=== PATIENT | male | born 1940 | race Caucasian/White ===

== ENCOUNTER 2017-05-05 23:49 | Emergency (ER) | payer OTHER, BC ==
[2017-05-06 00:04] VITALS: BP 142/5; PULSE 76; TEMP 98.1; BMI 28.1
--- NOTE | 2017-05-06 00:13 | PDOC ---
History of Present Illness - General Chief Complaint: Chest Pain Stated Complaint: CHEST PAIN Time Seen by Provider: 05/06/17 00:12 - History of Present Illness Initial Comments: This 76-year-old man with a history of coronary artery disease (NM, 2), DM, cirrhosis presents with history of left upper quadrant abdominal/left flank pain earlier this evening. Patient states that he began having mild pain in this area as he entered a restaurant approximately 2 hours prior to presentation. Pain continued (described as dull and steady) for approximately an hour while he was in the restaurant. As soon as he entered the parking lot of the restaurant, pain resolved spontaneously and has not recurred. Pain was worse with sitting and better with standing up. No pleuritic aspect of the pain. He denies shortness of breath, chest pain, diaphoresis, nausea. He has had no recent constipation or diarrhea. No history of fever/chills. He has had no hematuria/urinary frequency or urgency/dysuria. Patient has a history of renal colic and states this pain was very different. Of note, the patient states he has had a history of splenomegaly (related to his cirrhosis) but no history of left upper quadrant pain. Past History - Past Medical History Allergies/Adverse Reactions: Allergies Allergy/AdvReac Type Severity Reaction Status Date / Time No Known Drug Allergies Allergy Verified 09/24/13 00:27 Home Medications: Ambulatory Orders Aspirin Coated [Ecotrin -] 81 mg PO DAILY 09/16/13 Lisinopril [Prinivil -] 5 mg PO BID 09/16/13 Nadolol 20 mg PO BID 09/16/13 Omeprazole 20 mg PO BID 09/16/13 Atorvastatin Ca [Lipitor] 10 mg PO HS 05/05/17 Sitagliptin Phosphate [Januvia] 100 mg PO DAILY 05/05/17 Anemia: Yes Asthma: No Cancer: No Cardiac Disorders: Yes CVA: No COPD: No CHF: No Dementia: No Diabetes: Yes GI Disorders: No Disorders: No HTN: Yes Hypercholesterolemia: Yes Liver Disease: Yes (non alcolhol related liver cirrhosis) Seizures: No Thyroid Disease: No - Surgical History Cardiac Surgery: Yes (CARDIAC CATH AFTER NM, STENTS) - Suicide/Smoking/Psychosocial Hx Smoking Status: No Smoking History: Former smoker Have you smoked in the past 12 months: No Number of Cigarettes Smoked Daily: 0 If you are a former smoker, when did you quit?: 1971 Information on smoking cessation initiated: No Hx Alcohol Use: No Drug/Substance Use Hx: No Substance Use Type: None Hx Substance Use Treatment: No Cardiac Specific PMH - Complaint Specific PMHX Myocardial Infarction: Yes Pacemaker: No Review of Systems - Review of Systems Able to Perform ROS?: Yes Comments:: 12 point review of systems is negative except for what is noted in the history of present illness *Physical Exam - Vital Signs Last Vital Signs Temp Pulse Resp BP Pulse Ox 98.1 F 76 16 142/5 94 L 05/06/17 00:01 05/06/17 00:01 05/06/17 00:01 05/06/17 00:01 05/06/17 00:01 - Physical Exam Comments: GENERAL: Adult male, alert and oriented 3, in no acute distress HEAD: Normal with no signs of trauma. EYES: PERRLA, EOMI, sclera anicteric, conjunctiva clear. ENT: Ears normal, nares patent, oropharynx clear without exudates. Moist mucous membranes. NECK: Normal range of motion, supple without lymphadenopathy, JVD, or masses. LUNGS: Breath sounds equal, clear to auscultation bilaterally. No wheezes, and no crackles. HEART:Regular rate and rhythm, normal S1 and S2 without murmur, rub or gallop. ABDOMEN:.normal bowel sounds . Moderately distended but soft . No guarding, tenderness or rebound.No masses No distention. EXTREMITIES: Normal range of motion, no edema. No clubbing or cyanosis. No erythema, or tenderness. NEUROLOGICAL: Cranial nerves II through XII grossly intact. Normal speech. No focal neurological deficits. MUSCULOSKELETAL: Back non-tender to palpation, no CVA tenderness SKIN: Warm, Dry, normal turgor, no rashes or lesions noted. 12-lead electrocardiogram is performed and interpreted by me. This shows normal sinus rhythm at 60 beats per minutes and: Intervals, wave forms and axis or normal. No acute ST or T-wave abnormalities. It is essentially unchanged from most recent EKG tracing available dated 09/11/13 ED Treatment Course - LABORATORY CBC & Chemistry Diagram: 05/06/17 00:35 05/06/17 00:35 - ADDITIONAL ORDERS Additional order review: Laboratory Results 05/06/17 05/06/17 00:35 00:35 Sodium 140 Potassium 4.0 Chloride 104 Carbon Dioxide 29 Anion Gap 7 L BUN 12 Creatinine 0.7 Creat Clearance w eGFR > 60 Random Glucose 149 H Calcium 8.0 L Total Bilirubin 1.9 H D AST 40 H D ALT 29 Alkaline Phosphatase 108 Creatine Kinase 43 Troponin I < 0.02 Total Protein 6.4 Albumin 2.9 L Lipase 103 05/06/17 00:35 RBC 3.55 L MCV 101.8 H D MCHC 35.3 RDW 14.0 D MPV 9.3 D Neutrophils % 65.3 Lymphocytes % 15.4 D Monocytes % 15.3 H Eosinophils % 3.4 Basophils % 0.6 Medical Decision Making - Medical Decision Making Patient continued to be comfortable without recurrence of left-sided upper abdominal/flank pain or development of new symptoms. Laboratory evaluation showed normal cardiac enzymes with troponin of 0 0.02. CBC notable for a platelet count of 51,000. Patient has had long history of thrombocytopenia with platelet count as low as 47,000 measured here 09/20/13. Patient states that he has had a hematologic workup in the past including a bone marrow aspiration. Also notable but present previously is calcium level VIII.0. This was as low 7.7 measured 09/24/13. Total bilirubin is mildly elevated (1.9) Results of the studies discussed with the patient. He is already scheduled to follow up with his research environmental engineer next week. 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 Meanwhile, the patient has any recurrence of his pain or develops any kind of chest pain/shortness of breath/diaphoresis he should return to the emergency room immediately. *DC/Admit/Observation/Transfer Diagnosis at time of Disposition: Flank pain, Upper abdominal pain - Discharge Dispostion Disposition: HOME Condition at time of disposition: Stable - Referrals Referrals: Zaki Stokes [Primary Care Provider] - - Patient Instructions Printed Discharge Instructions: DI for Flank Pain Additional Instructions: Continue medications as prescribed Return to ER if you have worsening pain or experience vomiting/fever/shortness of breath Follow-up with your research environmental engineer next week as scheduled Consider following up with general medical doctor in 5 days
[2017-05-06 01:15] LABS: BASOPHIL 0.6 % (0-2.0); EOSINOPHIL 3.4 % (0-4.5); MCHC 35.3 g/dl (32.0-35.9); MEAN CELL VOLUME 101.8 fl (80-96); MEAN PLT VOLUME 9.3 fl (7.5-11.1); NEUTROPHILS 65.3 % (42.8-82.8); PLATELET COUNT 51 K/MM3 (134-434); WHITE BLOOD COUNT 4.8 K/mm3 (4.0-10.0)
[2017-05-06 01:36] LABS: CPK 43 IU/L (39-308); TROPONIN I < 0.02 ng/ml (0.00-0.05)
[2017-05-06 01:40] LABS: ALBUMIN 2.9 g/dl (3.4-5.0); ANION GAP 7 (8-16); CO2 29 mmol/L (21-32); GLUCOSE,RANDOM 149 mg/dL (74-106); SGOT/AST 40 U/L (15-37); SGPT/ALT 29 U/L (12-78)
[2017-05-06 01:43] LABS: ALK PHOS 108 U/L (45-117); BILIRUBIN,TOTAL 1.9 mg/dL (0.2-1.0); CREATININE 0.7 mg/dL (0.7-1.3); TOT PROT 6.4 g/dl (6.4-8.2)
--- NOTE | 2017-05-12 09:21 | EKG ---
Test Reason : Blood Pressure : / mmHG Vent. Rate : 069 BPM Atrial Rate : 069 BPM P-R Int : 162 ms QRS Dur : 084 ms QT Int : 420 ms P-R-T Axes : 000 -49 052 degrees QTc Int : 450 ms NORMAL SINUS RHYTHM LEFT ANTERIOR FASCICULAR BLOCK MODERATE VOLTAGE CRITERIA FOR LVH, MAY BE NORMAL VARIANT CANNOT RULE OUT SEPTAL INFARCT , AGE UNDETERMINED ABNORMAL ECG WHEN COMPARED WITH ECG OF 17-SEP-2013 17:27, NO SIGNIFICANT CHANGE WAS FOUND Confirmed by ARPIL CARBONE MD ([id number]) on 05/12/2017 9:21:02 AM Referred By: DR JOHNSON Confirmed By:ARPIL CARBONE MD
== END 2017-05-06 02:16 | disposition home or self-care (01) ==
LOC: FER 23:49
DX: R10.10 Upper abdominal pain, unspecified (principal); R10.32 Left lower quadrant pain; I25.2 Old myocardial infarction; E11.9 Type 2 diabetes mellitus without complications; I25.10 Atherosclerotic heart disease of native coronary artery without angina pectoris; I10 Essential (primary) hypertension; E78.00 Pure hypercholesterolemia, unspecified; I51.9 Heart disease, unspecified
CPT/HCPCS: 36415; 80053; 83690; 84484; 85025; 93005; 99282-25

== ENCOUNTER 2017-06-30 10:46 | Emergency (ER) | payer OTHER, BC ==
--- NOTE | 2017-06-30 10:52 | PDOC ---
History of Present Illness - General Chief Complaint: Shortness of Breath Stated Complaint: SOB,COUGH Time Seen by Provider: 06/30/17 10:52 Past History - Past Medical History Allergies/Adverse Reactions: Allergies Allergy/AdvReac Type Severity Reaction Status Date / Time No Known Drug Allergies Allergy Verified 06/30/17 10:47 Home Medications: Ambulatory Orders Aspirin Coated [Ecotrin -] 81 mg PO DAILY 09/16/13 Lisinopril [Prinivil -] 5 mg PO BID 09/16/13 Nadolol 20 mg PO BID 09/16/13 Omeprazole 20 mg PO BID 09/16/13 Atorvastatin Ca [Lipitor] 10 mg PO HS 05/05/17 Sitagliptin Phosphate [Januvia] 100 mg PO DAILY 05/05/17 Azithromycin [Zithromax -] 250 mg PO UTDICT #6 tab 06/30/17 Methylprednisolone [Medrol Dose Yong] 4 mg PO ASDIR #21 tablet 06/30/17 Promethazine/Phenyleph/Codeine [Phenergan VC+Codeine Syrup] 5 ml PO TID #150 ml MDD 15ml 06/30/17 Anemia: Yes Asthma: No Cancer: No Cardiac Disorders: Yes CVA: No COPD: No CHF: No Dementia: No Diabetes: Yes GI Disorders: No Disorders: No HTN: Yes Hypercholesterolemia: Yes Liver Disease: Yes (non alcolhol related liver cirrhosis) Seizures: No Thyroid Disease: No - Surgical History Cardiac Surgery: Yes (CARDIAC CATH AFTER ND, STENTS) - Suicide/Smoking/Psychosocial Hx Smoking Status: No Smoking History: Former smoker Have you smoked in the past 12 months: No Number of Cigarettes Smoked Daily: 0 If you are a former smoker, when did you quit?: 1972 Hx Alcohol Use: No Drug/Substance Use Hx: No Substance Use Type: None Hx Substance Use Treatment: No ED Treatment Course - LABORATORY CBC & Chemistry Diagram: 06/30/17 11:26 06/30/17 11:26 *DC/Admit/Observation/Transfer Diagnosis at time of Disposition: Bronchitis - Discharge Dispostion Disposition: HOME Condition at time of disposition: Unchanged/Unknown Admit: No - Prescriptions Prescriptions: Azithromycin [Zithromax -] 250 mg PO UTDICT #6 tab Methylprednisolone [Medrol Dose Yong] 4 mg PO ASDIR #21 tablet Promethazine/Phenyleph/Codeine [Phenergan VC+Codeine Syrup] 5 ml PO TID #150 ml MDD 15ml - Referrals Referrals: Daniel Portillo MD [Staff Physician] - Segun Sharma MD [Staff Physician] - - Patient Instructions Printed Discharge Instructions: DI for Acute Bronchitis Additional Instructions: Mr Roman- Sorry you are not feeling so well. I am treating you for Bronchitis. Antibiotics and Medrol Dose Pack. Return to us if worse or new symptoms. Follow up with your doctor or Bonifacio Sharma/[facility]. [place]- Dr. Blaise Gomez - Post Discharge Activity
[2017-06-30 10:59] VITALS: BP 125/66; TEMP 98.2; BMI 29.0
[2017-06-30 11:00] VITALS: PULSE 70
[2017-06-30] MEDS ORDERED: methylPREDNISolone NA SUCC 125 MG/2 ML VIAL IVPUSH ONE (11:12)
[2017-06-30] MEDS ORDERED: ALBUTEROL SO4 2.5/IPRATROPIUM 0.5 INH SOL 3 ML VIAL.NEB. NEB ONE ×2 (11:12→11:44)
[2017-06-30] MEDS ORDERED: ALBUTEROL SO4 0.083% IH SOL 2.5 MG/3 ML VIAL.NEB. NEB ONE ×2 (11:12→11:44)
[2017-06-30 11:36] LABS: BASOPHIL 0.8 % (0-2.0); EOSINOPHIL 0.9 % (0-4.5); MCH 34.6 pg (25.7-33.7); MCHC 34.3 g/dl (32.0-35.9); MEAN CELL VOLUME 100.7 fl (80-96); NEUTROPHILS 72.1 % (42.8-82.8); PLATELET COUNT 79 K/MM3 (134-434); WHITE BLOOD COUNT 7.3 K/mm3 (4.0-10.8)
[2017-06-30] MEDS ORDERED: methylPREDNISolone NA SUCC 125 MG/2 ML VIAL ONE (11:44)
[2017-06-30 11:52] LABS: ALBUMIN 3.2 g/dl (3.5-5.0); ALK PHOS 50 U/L (32-92); ANION GAP 8 (8-16); BILIRUBIN,DIRECT 0.9 mg/dL (0.0-0.3); BILIRUBIN,TOTAL 3.8 mg/dl (0.2-1.0); CALCIUM 8.1 mg/dl (8.4-10.2); CO2 26 mmol/L (22-28); CPK 72 IU/L (39-308); CREATININE 0.7 mg/dl (0.6-1.3); GLUCOSE,RANDOM 186 mg/dl (74-106); SGOT/AST 40 U/L (10-42); SGPT/ALT 22 U/L (10-40); TOT PROT 6.7 g/dl (6.4-8.3)
[2017-06-30] MEDS ORDERED: cefTRIAXone 1 GM/50 ML BAG (PRE-DOCKED) IVPB ONE (12:29)
[2017-06-30] MEDS ORDERED: AZITHROMYCIN 250 MG TABLET PO ONE (12:29)
[2017-06-30] MEDS ORDERED: cefTRIAXone SODIUM 1 GM VIAL ONE (12:31)
[2017-06-30] MEDS ORDERED: AZITHROMYCIN 500 MG TABLET ONE (12:31)
[2017-06-30 15:39] LABS: TROPONIN I (DFP) < 0.03 ng/ml (0.03-0.50)
--- NOTE | 2017-07-01 19:35 | EKG ---
Test Reason : Blood Pressure : / mmHG Vent. Rate : 070 BPM Atrial Rate : 070 BPM P-R Int : 168 ms QRS Dur : 086 ms QT Int : 430 ms P-R-T Axes : -19 -51 -42 degrees QTc Int : 464 ms NORMAL SINUS RHYTHM LEFT AXIS DEVIATION SEPTAL INFARCT (CITED ON OR BEFORE 06-MAY-2017) NONSPECIFIC ST AND T WAVE ABNORMALITY ABNORMAL ECG WHEN COMPARED WITH ECG OF 06-MAY-2017 00:11, NONSPECIFIC T WAVE ABNORMALITY NOW EVIDENT IN INFERIOR LEADS Confirmed by PIETER YU MD ([id number]) on 07/01/2017 7:34:45 PM Referred By: JORGE ALBERTO Confirmed By:PIETER YU MD
== END 2017-06-30 12:53 | disposition home or self-care (01) ==
LOC: FER 10:46
PROC: 3E0F7GC Introduction of Other Therapeutic Substance into Respiratory Tract, Via Natural or Artificial Opening (ICD-10-PCS; principal; 2017-06-30)
PROC: 3E03329 Introduction of Other Anti-infective into Peripheral Vein, Percutaneous Approach (ICD-10-PCS; 2017-06-30)
PROC: 3E033GC Introduction of Other Therapeutic Substance into Peripheral Vein, Percutaneous Approach (ICD-10-PCS; 2017-06-30)
DX: J40 Bronchitis, not specified as acute or chronic (principal)
CPT/HCPCS: 36415; 71020-TC; 80053; 80076; 82550; 83880; 84484; 85025; 87040; 87804; 93005; 94640; 96374; 96375; 99283-25

== ENCOUNTER 2018-03-26 16:57 | Emergency (ER) | payer OTHER, BC ==
--- NOTE | 2018-03-26 17:02 | PDOC ---
Attending Attestation - Resident Resident Name: SolangeRobina - ED Attending Attestation I have performed the following: I have examined & evaluated the patient, The case was reviewed & discussed with the resident, I agree w/resident's findings & plan, Exceptions are as noted <GabriellaJuanito kwan - Last Filed: 03/26/18 17:01> - HPI HPI: 03/26/18 18:30 The patient is a 77 year old male with a past medical history of hypertension, diabetes, liver cancer, and prior CVA who presents to the emergency department for evaluation right arm swelling and bruising. The patient reports hitting his right elbow on an elevator door 1 week ago. He reports subsequent bruising and swelling of the right forearm and upper arm, but denies any associated pain. Patient reports the gradual improvement of the bruising, but decided to visit an urgent care due to what he describes as a mobile knot on the anterior side of the forearm just proximal to the elbow. He states he visited an Urgent Care this morning in which a physician assistant corporate controller advised him to visit the emergency department for further evaluation secondary to potential breakage or fracture of his right arm. Of note, the patient is currently on baby aspirin. Denies chest pain, shortness of breath, headache, dizziness, fever, chills, nausea, vomiting, or any bowel/urinary symptoms. - Physicial Exam PE: GENERAL: Well-appearing, well-nourished. No apparent distress. HEENT: Normocephalic, atraumatic. PERRL, EOM intact. CARDIOVASCULAR: Normal S1, S2. Regular rate and rhythm. PULMONARY: Clear to auscultation bilaterally. ABDOMEN: Soft, non-distended, non-tender. EXTREMITIES: (+)discoloration of volar aspect of right forearm and upper arm, suggestive of old bruising. No induration, tenderness, or warmth which would suggest an infection. There is a 1 cm nodule overlying the medial condyle of the elbow, which is nontender, and has the consistency of a hematoma. Full ROM of elbow in flexion, extension, supination, and pronation both actively and passively without any pain. Pulses are full and no distal sensory deficits. SKIN: Warm, dry. No rash NEUROLOGICAL: No focal neurological deficits. - Medical Decision Making 03/26/18 18:30 Assessment: Minor contusion, no sign of fracture or other serious injury The patient is a 77 year old male with a past medical history of hypertension, diabetes, liver cancer, and prior CVA who presents to the emergency department for evaluation right arm swelling and bruising. Plan: Warm compress Reassure and recheck if any additional symptoms develop. <Keira Zelaya - Last Filed: 03/26/18 18:33> Attestations - Attestations Documentation prepared by Keira Zelaya, acting as medical equipment sales for Juanito Duke MD. <Keira Zelaya - Last Filed: 03/26/18 18:33>
[2018-03-26 17:38] VITALS: BP 109/69; PULSE 66; TEMP 98.4; BMI 25.3
--- NOTE | 2018-03-26 18:29 | PDOC ---
History of Present Illness - General Chief Complaint: Injury Stated Complaint: RIGHT ARM BRUISING - History of Present Illness Initial Comments: Charan Roman is a 77yo man with a PMH of HTN, previous IL, DM who presents today wtih RUE bruising and swelling. He reports that he was sent from urgent care due to concern for fracture. Mr Roman reports that he hit his elbow on an elevator door about a week ago. The area swelled and became very bruised. The swellign and bruising improbved somewhat over the week, but he noticed a nodule on his elbow and still had bruising. He decided that it should be evaluated today, and presented to urgent care. He reports that he was told that it might be fractured but could not get an xray at urgent care, so he came to the ED. Mr Roman denies any use of anticoagulants but does take an ASA81 daily. He has not had any significant pain at the elbow, no limitations to arm ROM, no numbness/tingling in the arm. Past History - Past Medical History Allergies/Adverse Reactions: Allergies Allergy/AdvReac Type Severity Reaction Status Date / Time No Known Drug Allergies Allergy Verified 03/26/18 17:34 Home Medications: Ambulatory Orders Aspirin Coated [Ecotrin -] 81 mg PO DAILY 09/16/13 Lisinopril [Prinivil -] 5 mg PO BID 09/16/13 Nadolol 20 mg PO BID 09/16/13 Omeprazole 20 mg PO BID 09/16/13 Atorvastatin Ca [Lipitor] 10 mg PO HS 05/05/17 Sitagliptin Phosphate [Januvia] 100 mg PO DAILY 05/05/17 Furosemide [Lasix] mg PO 03/26/18 Anemia: Yes Asthma: No Cancer: Yes (LIVER) Cardiac Disorders: Yes CVA: No COPD: No CHF: No Dementia: No Diabetes: Yes GI Disorders: No Disorders: No HTN: Yes Hypercholesterolemia: Yes Liver Disease: Yes (non alcohol related liver cirrhosis) Seizures: No Thyroid Disease: No - Surgical History Cardiac Surgery: Yes (CARDIAC CATH AFTER IL, STENTS) GI Surgery: Yes (LIVER SX) - Suicide/Smoking/Psychosocial Hx Smoking Status: No Smoking History: Never smoked Have you smoked in the past 12 months: No Number of Cigarettes Smoked Daily: 0 If you are a former smoker, when did you quit?: 1971 Information on smoking cessation initiated: No Hx Alcohol Use: No Drug/Substance Use Hx: No Substance Use Type: None Hx Substance Use Treatment: No Review of Systems - Review of Systems Comments:: General: No fevers, no chills, no weight or appetite change, no malaise HEENT: No changes in vision, no changes in hearing, no congestion, no sore throat CV: No chest pain, no palpitations, no LE edema Pulm: No SOB, no cough, no wheezing GI: No nausea or vomiting, no change in bowel habits, no melena : No frequency, no urgency, no dysuria Musc: See HPI Skin: No rash, no lesions, no erythema Endo: No excessive thirst, no heat/cold intolerance Heme: No unusual bruising or bleeding, no swollen glands Neuro: No syncope, no numbness/tingling, no focal weakness Vasc: No claudication Psych: No recent change in mood, no SI or HI *Physical Exam - Vital Signs Last Vital Signs Temp Pulse Resp BP Pulse Ox 98.4 F 66 18 109/69 96 03/26/18 17:36 03/26/18 17:36 03/26/18 17:36 03/26/18 17:36 03/26/18 17:36 - Physical Exam Comments: General: Comfortable, no acute distress HEENT: PERRL, EOMI, MMM, voice normal, normal neck ROM, no LAD Cards: RRR, no murmur appreciated Pulm: Comfortable on room air, clear to auscultation bilaterally Abd: Soft, nontender, nondistended RUE: Bruising along anterior forearm, no erythema, no edema, very mildly TTP. Quarter-sized, rubbery, mobile, non-tender nodule on posterior radial proximal forearm just distal to elbow. Active and passive ROM intact. No bony tenderness. Sensation intact. Vasc: Extremities WWP. Palpable radial and pedal pulses bilaterally Neuro: A&Ox3, CN grossly intact, normal speech, motor/sensory grossly intact and symmetric Psych: Mood appropriate to situation ED Treatment Course - RADIOLOGY Radiology Studies Ordered: Category Date Time Status ELBOW-RIGHT [RAD] Stat Radiology 03/26/18 18:06 Ordered Medical Decision Making - Medical Decision Making 03/26/18 18:31 Charan Roman is a 77yo man with a PMH of previous IL, HTN, DM who presents from urgent care for evaluation of an elbow injury - No abnormalities to ROM, strength. Neurovascularly intact. No suspicion for fracture. - Ecchymosis on forearm appears to be resolving. No edema or tenderness that suggests significant pathology or injury - Nodule nontender, mobile, related to injury. Not concerning for fracture or dislocation - Xrays completed, reviewed, no sign of acute injury - Plan to discharge home. Mr Roman understands and agrees with this plan. Discussed with Dr Carroll *DC/Admit/Observation/Transfer Diagnosis at time of Disposition: Elbow injury - Discharge Dispostion Disposition: HOME Condition at time of disposition: Good Decision to Admit order: No - Referrals - Patient Instructions Additional Instructions: Discharge Instuctions: - You were seen in the ED for bruising and localized swelling on your right elbow and forearm - There is no concern for fracture since you have no pain and are able to use your arm normally - Fractures can have delayed presentation. If you have continued swelling, difficulty moving your arm, worsening pain, numbness/tingling in your fingers, or the bruising gets worse please seek medical attention - You should follow up with your primary physician within the next week for additional evaluation. - Post Discharge Activity
== END 2018-03-26 18:45 | disposition home or self-care (01) ==
LOC: FER 16:57
DX: S59.901A Unspecified injury of right elbow, initial encounter (principal); Y93.89 Activity, other specified; Y92.9 Unspecified place or not applicable; I10 Essential (primary) hypertension; E11.9 Type 2 diabetes mellitus without complications; I25.2 Old myocardial infarction; E78.00 Pure hypercholesterolemia, unspecified
CPT/HCPCS: 73070-TC-RT-FY; 99281-25

== ENCOUNTER 2018-09-09 12:06 | Emergency (ER) | payer OTHER, BC ==
[2018-09-09 12:28] VITALS: BP 99/58; PULSE 62; TEMP 98; BMI 25.0
--- NOTE | 2018-09-09 12:39 | PDOC ---
History of Present Illness - General Chief Complaint: Injury Stated Complaint: FALL Time Seen by Provider: 09/09/18 12:09 - History of Present Illness Initial Comments: 09/09/18 16:07 Chief complaint: Head injury History of present illness: Yesterday the patient missed a step, fell down some stairs impacting the right postauricular scalp. Persistent headache in that area with lightheadedness today. Review of systems: Denies loss of consciousness. Denies chest pain, shortness of breath, abdominal pain, nausea, vomiting, diarrhea, visual or focal neurologic symptoms, unsteadiness of gait. Remainder systems reviewed and negative Past medical history: As noted in prior record, noncontributory to today's injury Social/family history reviewed and noncontributory Physical exam: Alert and oriented well-developed well-nourished no acute distress cheerful and cooperative Afebrile, vital signs normal Head atraumatic. There is no evidence of contusion and abrasion or laceration of the scalp. There is mild tenderness in the postauricular area. No depression or crepitus of the skull ER RLA, fundi benign, ENT clear Neck supple without bruit mass or nodes. No point tenderness or deformity of the cervical spine. Good range of motion without pain Chest clear. Full breath sounds bilaterally. No rib cage or chest wall deformity or tenderness CV regular without murmur rub or gallop Abdomen benign No CVAT. No pelvic or spine tenderness or deformity Neurological C2 to 12 intact. Strength full and symmetric. No focal sensory or motor deficits. Gait stable and unimpaired Extremities no CCE Skin clear, no rash, adequate turgor and wet mucous membranes Impression: Head and neck injury yesterday, rule out fracture. Although no sign of ongoing neurologic deficit Plan: CT of the head and neck are negative. Reassure. Rest. Follow-up primary physician. Return to ER if further symptoms develop. Fully ambulatory and in no distress upon discharge to follow-up as directed Past History - Past Medical History Allergies/Adverse Reactions: Allergies Allergy/AdvReac Type Severity Reaction Status Date / Time No Known Drug Allergies Allergy Verified 09/09/18 12:41 Home Medications: Ambulatory Orders Aspirin Coated [Ecotrin -] 81 mg PO DAILY 09/16/13 Nadolol 20 mg PO BID 09/16/13 Omeprazole 20 mg PO BID 09/16/13 Atorvastatin Ca [Lipitor] 10 mg PO HS 05/05/17 Sitagliptin Phosphate [Januvia] 100 mg PO DAILY 05/05/17 Furosemide [Lasix] 20 mg PO DAILY 03/26/18 Anemia: Yes Asthma: No Cancer: Yes (LIVER) Cardiac Disorders: Yes CVA: No COPD: No CHF: No Dementia: No Diabetes: Yes GI Disorders: No Disorders: No HTN: Yes Hypercholesterolemia: Yes Liver Disease: Yes (non alcohol related liver cirrhosis) Seizures: No Thyroid Disease: No - Surgical History Cardiac Surgery: Yes (CARDIAC CATH AFTER AL, STENTS) GI Surgery: Yes (LIVER SX) - Immunization History Immunization Up to Date: Yes - Suicide/Smoking/Psychosocial Hx Smoking Status: No Smoking History: Never smoked Have you smoked in the past 12 months: No Number of Cigarettes Smoked Daily: 0 If you are a former smoker, when did you quit?: 1971 Information on smoking cessation initiated: No Hx Alcohol Use: No Drug/Substance Use Hx: No Substance Use Type: None Hx Substance Use Treatment: No *Physical Exam - Vital Signs Last Vital Signs Temp Pulse Resp BP Pulse Ox 98 F 62 20 99/58 L 98 09/09/18 12:06 09/09/18 12:06 09/09/18 12:06 09/09/18 12:06 09/09/18 12:06 Moderate Sedation - Procedure Monitoring Vital Signs: Procedure Monitoring Vital Signs Temperature 98 F 09/09/18 12:06 Pulse Rate 62 09/09/18 12:06 Respiratory Rate 20 09/09/18 12:06 Blood Pressure 99/58 L 09/09/18 12:06 O2 Sat by Pulse Oximetry (%) 98 09/09/18 12:06 *DC/Admit/Observation/Transfer Diagnosis at time of Disposition: Head injury Qualifiers: Encounter type: initial encounter Qualified Code(s): S09.90XA - Unspecified injury of head, initial encounter - Discharge Dispostion Disposition: HOME Condition at time of disposition: Stable Decision to Admit order: No - Referrals - Patient Instructions Printed Discharge Instructions: DI for Closed Head Injury - Post Discharge Activity
== END 2018-09-09 13:55 | disposition home or self-care (01) ==
LOC: FER 12:06
DX: S09.90XA Unspecified injury of head, initial encounter (principal); W10.9XXA Fall (on) (from) unspecified stairs and steps, initial encounter; Y93.89 Activity, other specified; Y92.89 Other specified places as the place of occurrence of the external cause; Z87.891 Personal history of nicotine dependence; I10 Essential (primary) hypertension; E78.00 Pure hypercholesterolemia, unspecified; E11.9 Type 2 diabetes mellitus without complications
CPT/HCPCS: 70450-TC; 72125-TC; 99282-25